=== PATIENT | male | born 1990 | race Caucasian/White ===

== ENCOUNTER 2022-03-30 08:34 | Day surgery (SDC) | payer BC, SELFPAY ==
[2022-03-30 09:14] VITALS: BP 136/86; PULSE 75; RESP 16; TEMP 36.9; O2SAT 99; BMI 21.8
--- NOTE | 2022-03-30 09:19 | ED.SKABFB ---
HPI - Skin/Abscess/Foreign Bdy General Chief complaint: Skin/Abscess/Foreign Body Stated complaint: chicken bone in throat t-1 Time Seen by Provider: 03/30/22 09:13 Source: patient Mode of arrival: Ambulatory Limitations: no limitations History of Present Illness HPI narrative: Patient is an otherwise healthy 31-year-old male who was eating turkey and swallowed and felt like something got stuck in his throat. He states that since that time he has been able to swallow but each time he does so it hurts. He can breathe without issue. Sometimes when he turns his neck it causes some discomfort. Has not tried anything for the symptoms prior to arrival. Related Data Home Medications Medication Instructions Recorded Confirmed No Known Home Medications 03/30/22 03/30/22 Allergies Allergy/AdvReac Type Severity Reaction Status Date / Time No Known Drug Allergies Allergy Verified 03/30/22 11:17 Review of Systems Constitutional Constitutional: Reports system reviewed and no additional complaints, except as documented ENT Ears, Nose, Mouth, and Throat: Reports system reviewed and no additional complaints, except as documented Respiratory Respiratory: Reports system reviewed and no additional complaints, except as documented Gastrointestinal Gastrointestinal: Reports system reviewed and no additional complaints, except as documented Hematologic/Lymphatic On Anticoagulants: No Patient History Medical History Healthy adult Social History household members: none lives independently: Yes Smoking Status: Current some day smoker alcohol intake: current Exam Initial Vital Signs Initial Vital Signs: Vital Signs Temperature 98.4 F 03/30/22 09:14 Pulse Rate 75 03/30/22 09:14 Respiratory Rate 16 03/30/22 09:14 Blood Pressure 136/86 03/30/22 09:14 Pulse Oximetry 99 03/30/22 09:14 Oxygen Delivery Method 03/30/22 09:14 Const General: cooperative, comfortable, well developed and No ill appearing HENAK Head: normal to inspection and normocephalic Mouth: oral mucosae normal Teeth and gingiva: dentition normal Throat: posterior oropharynx normal and uvula midline Resp Effort & Inspection: normal respiratory effort Auscultation: clear to auscultation bilaterally Skin General: no rashes or lesions noted Neuro General: patient alert, patient awake and moves all extremities Course Orders Ordered: ED Orders 03/30/22 10:11 COVID19 -Nasal RAPID/Pre-Proc Stat 03/30/22 10:27 Consult to General Surgery Stat Lactated Ringer's (Lactated Ringers) 1,000 mls @ 42 mls/hr IV NOW ONE Stop: 03/31/22 11:16 Last Admin: 03/30/22 11:29 Dose: 42 mls/hr Documented By: CMG Vital Signs Vital signs: Vital Signs - 8 hr 03/30/22 09:14 03/30/22 11:16 Temperature 98.4 F 97.4 F L Pulse Rate 75 66 Respiratory Rate 16 16 Blood Pressure 136/86 132/83 Pulse Oximetry 99 100 Oxygen Delivery Method Room Air Room Air Oxygen Flow Rate 0 MDM - Skin/Abscess/Foreign Bdy Lab Data Labs: Lab Results 03/30/22 Range/Units 10:11 SARS-CoV-2 (PCR) Negative (Negative) MDM Narrative Medical decision making narrative: No overt signs of an esophageal foreign body noted on the exam however I did discuss the case with Dr. Marion who evaluated the patient emergency department. Plan to be is to take the patient to the endoscopy suite for an upper endoscopy. No respiratory distress. Discharge Plan Departure Patient Disposition: Admitted to Surgery Clinical Impression: Esophageal foreign body
--- NOTE | 2022-03-30 10:33 | PM.HP.1 ---
History of Present Illness History of Present Illness Date Patient Seen: 03/30/22 Time Patient Seen: 10:33 Chief complaint: chicken bone in throat t-1 Narrative: Angelo Massey is a 31 year old man who developed sharp pain in his throat after eating chicken higgins last night. The pain is not constant. He notices the discomfort when he turns his head from side to side. He has not eaten since last night. Patient History Medical History Healthy adult Family & Social History Social History: lives independently Yes Safety & Behavioral: Feels Safe in Current Yes Environment Been Physically Hurt or No Threatened By a Person Exam Vital Signs (past 8 hours): - 03/30/22 09:14 Temperature 98.4 F Pulse Rate 75 Respiratory Rate 16 Blood Pressure 136/86 Pulse Oximetry 99 Oxygen Delivery Method Room Air Oxygen Delivery Method Room Air Const General: healthy appearing and No acute distress Resp Effort & Inspection: normal respiratory effort Assessment & Plan Assessment and plan (1) Foreign body: Status: Acute Plan Recommended EGD to rule out esophageal foreign body. He would like to proceed. Time Spent With Patient Critical Care time: I spent a total of [] minutes of critical care time on this patient's care today; this time is exclusive of procedural time.
[2022-03-30 10:46] LABS: COVID19 -Nasal RAPID Negative (Negative)
--- NOTE | 2022-03-30 11:07 | PC.NURSE ---
states 2100 last night was eating leftovers and thinks he has a chicken bone foreign body stuck in his throat. tolerating PO fluids and secretions.
[2022-03-30 11:16] VITALS: BP 132/83; PULSE 66; RESP 16; TEMP 36.3; O2SAT 100
[2022-03-30 11:23] VITALS: BMI 21.8
[2022-03-30] MEDS: LACTATED RINGERS 1,000 ML 42 ML IV ×2 (11:29→12:17)
[2022-03-30 12:23] VITALS: BP 133/85; PULSE 71; RESP 8; TEMP 37.2; O2SAT 98
[2022-03-30 12:28] VITALS: BP 126/82; PULSE 69; RESP 11; O2SAT 98
--- NOTE | 2022-03-30 12:31 | PM.OP.EGD ---
Procedure & Clinicians Study performed: Esophageal gastroscope Same procedure as scheduled: Yes Indications: Possible Esophageal foreign body. Surgeon: Livier Anand Procedure Notes Procedure in detail: Patient was taken to the operating room. A time-out was performed. Bilateral SCDs were placed. Per Anesthesia evaluation and decision the patient was placed under general anesthesia with an endotracheal tube. The EGD scope was placed into the mouth. The ET tube was seen in place and an attempt was made to intubate the esophagus on the patient's right, this was difficult but I was able to advance about 5 cm (about 20 cm at the incisors) into the esophagus, where, at this point a small apparently mucosal injury was seen to the cervical esophagus and there was some scant bleeding the site. A photograph was taken. At this point, I withdrew the scope and intubated the esophagus from the left side of the ET tube. In order to advanced past the point of the ET tube balloon some air was withdrawn from it and the neck was repositioned slightly. After that, the remainder of the esophagus was intubated easily and examined directly. The stomach was intubated and examined as well. No abnormalities were seen in the stomach or the distal esophagus upon withdrawal. photographs were taken. The scope was withdrawn up the left side of the cervical esophagus in the region where the ET tube was placed, and no injuries were seen there. Specimen(s): none sent Complications: none Impression: I suspect the patient's symptoms are a result of a small cervical esophageal injury. Discussed the findings with the patient's father after the case. I advised that a barium swallow could further delineate the depth or severity of any injury. Dr. Massey, his father, an ENT surgeon, felt that the yield from such study would be small and that he was comfortable taking the patient home at this time for observation. I agree likely just a mucosal injury; however, I did advise him, if any thing does not seem to be right or if any pain seems to be worsening and not getting better with time, that he ought to call [facility] surgeon production weigher and/or come back to the ER and obtain such study. I provided Dr. Massey a card with contact information. I discussed it briefly but, Dr. Massey certainly understands the symptoms and signs of mediastinal sepsis from esophageal injury and what to look for in the rare case that this injury is more severe than it appeared. Post-procedure Disposition: PACU
[2022-03-30 12:38] VITALS: BP 112/75; PULSE 61; RESP 12; O2SAT 98
[2022-03-30 12:45] VITALS: BP 109/70; PULSE 62; RESP 14; O2SAT 97
== END 2022-03-30 13:10 | disposition home or self-care (01) ==
LOC: ED 10:52 → OR 11:01
PROVIDERS: Emergency Provider Emergency Medicine; Visit Provider Surgery
PROC: 0DJ08ZZ Inspection of Upper Intestinal Tract, Via Natural or Artificial Opening Endoscopic (ICD-10-PCS; CPT 43235; principal; 2022-03-30 11:00)
DX: R13.19 Other dysphagia (principal); F17.210 Nicotine dependence, cigarettes, uncomplicated; Z20.822 Contact with and (suspected) exposure to COVID-19
CPT/HCPCS: 43235; 87635; 99282; C9803; J0330; J1100; J2250; J2405; J2704; J3010